=== PATIENT | male | born 1960 | race Caucasian/White ===

== ENCOUNTER 2019-07-08 11:48 | Emergency (ER) | payer OTHER, MEDICAID, SELFPAY ==
[2019-07-08] VITALS (7 sets, daily range): BP systolic 173–208; BP diastolic 97–111; PULSE 72–84; RESP 18–23; TEMP 36.5; O2SAT 95–100; BMI 19.2
--- NOTE | 2019-07-08 11:57 | DI.RAD.S_ITS ---
PROCEDURE: XR CHEST 1V INDICATIONS: dyspnea, epigastric pain TECHNIQUE: One view of the chest was acquired. COMPARISON: None. FINDINGS: Surgical changes and devices: None. Lungs and pleura: Interstitial prominence is seen, which is most prominent within the right midlung. No pneumothorax or pleural effusions are seen. Mediastinum: The cardiac contours are within normal limits. The aorta demonstrates calcification and tortuosity. Bones and chest wall: No suspicious bony lesions. Age-appropriate bony degenerative changes are seen. Overlying soft tissues appear unremarkable. IMPRESSION: Right greater than left interstitial prominence. Differential diagnosis includes pulmonary edema and viral/atypical infiltrate. Please consider COVID-19 infection, in the appropriate clinical context. Dictated by: Guilherme Miles M.D. on 07/08/2019 at 11:59 Approved by: Guilherme Miles M.D. on 07/08/2019 at 12:00
[2019-07-08] MEDS: LORazepam 2 MG/ML INJ 1 MG IM (12:11)
[2019-07-08] MEDS: ONDANSETRON 4 MG/2 ML INJ IV ×2 (12:20→14:20)
[2019-07-08] MEDS: SODIUM CHLORIDE 0.9% 1,000 ML 1000 ML IV (12:21)
[2019-07-08] MEDS: PANTOPRAZOLE 40 MG VIAL IV (12:21)
[2019-07-08 12:25] LABS: Add Manual Diff / Slide Review NO; Basophils Absolute Auto 0 /uL (0-100); Basophils Percent Auto 0.3 % (0-2); Eosinophils Absolute Auto 0 /uL (0-450); Eosinophils Percent Auto 0.1 % (2-4); Hematocrit 44.1 % (41-53); Hemoglobin 15.3 g/dL (13.5-17.5); Lymphocytes Absolute Auto 900 /uL (1100-4500); Lymphocytes Percent Auto 7.9 % (25-40); Mean Corpuscular HGB Conc 34.6 % (30-36); Mean Corpuscular Hemoglobin 30.7 PG (26-34); Mean Corpuscular Volume 88.5 fL (80-100); Monocytes Absolute Auto 200 /uL (0-900); Monocytes Percent Auto 2.3 % (3-14); Neutrophils Absolute Auto 9700 /uL (1500-7000); Neutrophils Percent Auto 89.4 % (50-75); Platelet Count 217 X10^3/uL (150-400); Red Blood Cell Count 4.98 X10^6/uL (4.5-5.9); Red Cell Distribution Width 14.1 % (11.6-14.8); White Blood Cell Count 10.8 X10^3/uL (4.5-11.0)
[2019-07-08 12:37] LABS: Alanine Aminotransferase 22 IU/L (<50); Albumin 4.4 g/dL (3.5-5.0); Albumin Globulin Ratio 1.3 (1.0-2.8); Alkaline Phosphatase 94 U/L (38-126); Aspartate Aminotransferase 28 IU/L (17-59); BUN Creatinine Ratio 24.1 (6-22); Bilirubin Total 0.7 mg/dL (0.2-1.3); Blood Urea Nitrogen 20 mg/dL (9-20); Calcium 9.4 mg/dL (8.4-10.2); Carbon Dioxide 24 mmol/L (22-32); Chloride 101 mmol/L (98-107); Creatine Kinase 72 U/L (55-170); Estimated Glomerular Filt Rate > 60.0 mL/min (>60); Globulin 3.5 g/dL (1.7-4.1); Glucose 142 mg/dL (70-100); HEMOLYSIS < 15 (0-50); Lactate (Lactic Acid) 2.1 mmol/L (0.7-2.1); Lipase 50 U/L (23-300); Potassium 3.4 mmol/L (3.4-5.1); Sodium 136 mmol/L (137-145); Total Protein 7.9 g/dL (6.3-8.2)
[2019-07-08 12:48] LABS: Troponin I < 0.012 ng/mL (0.01-0.034)
--- NOTE | 2019-07-08 13:39 | ED_ITS ---
HPI - General Adult <Richmond Macedo [facility] - Last Filed: 07/08/19 18:12> General Chief complaint: Hypertension Stated complaint: Hypertensive and nausea Source: patient Mode of arrival: EMS Limitations: no limitations History of Present Illness HPI narrative: This is a 59-year-old male, smoker, with significant medical history with hypertension, who presents to ED with [facility] from [facility] with chief complain of nausea and hypertension. Patient is actively dry heaving when he arrived with chills and dyspnea. Patient denies chest pain, dizziness. Patient reports onset of nausea and vomiting 2 hours ago with mid abdominal discomfort. Reports had about 10 episodes of emesis without blood but with content of stomach acid. Last meal this morning which he had eggs. Patient reports he had similar symptoms in the past when he ruptured spleen from water skiing injury 20 years ago and from withdrawal symptoms. Patient states he takes methadone 55 mg once a day and last dose was yesterday morning since he was not able to tolerate with nausea and vomiting for today's dose. Patient denies drinking alcohol but states had smoked heroin 2 days ago the last time. Patient states he takes clonidine as needed for hypertensive episodes. Related Data Previous Rx's Medication Instructions Recorded ondansetron 4 mg PO Q6-8H PRN #10 tab 07/08/19 pantoprazole 40 mg PO DAILY #14 tab 07/08/19 Allergies Allergy/AdvReac Type Severity Reaction Status Date / Time meperidine [From Demerol] Allergy Verified 07/08/19 12:05 Review of Systems <Richmond Macedo [facility] - Last Filed: 07/08/19 18:12> Review of Systems Narrative: General: Denies fever, chills, fatigue, malaise, sweats. HEENT: Denies sinus pain, ear pain, sore throat, difficulty swallowing, dizzin ess. Respiratory: Denies (+) dyspnea, cough, wheezing, hemoptysis, sputum. Cardiovascular: Denies chest pain, palpitations, orthopnea, edema. Gastrointestinal: See HPI : Denies dysuria, frequency, incontinence, hematuria, urinary retention. Musculoskeletal: Denies weakness, joint pain or bony pain. Skin: Denies rash, skin lesions, or other. Neurologic: Denies weakness, headache, numbness, change in speech, confusion, seizures, incoordination. Psychiatric: No concerning psychosocial issues. 12-point review of systems is negative except for those stated above. Patient History <Richmond BetheaEFRAIN Tamayo - Last Filed: 07/08/19 18:12> Medical History Heroin use (Acute) Hypertension (Acute) Social History Smoking Status: Current every day smoker Smoking Status: Current every day smoker tobacco type: cigarettes alcohol intake frequency: 0-2 drinks per day Substance Use Type: heroin Exam <Richmond BetheaEFRAIN Tamayo - Last Filed: 07/08/19 18:12> Narrative Exam Narrative: GEN: Alert, oriented x 3, ill appearing, thin appearing and in acute distress. Head: Normal cephalic, atraumatic. No scalp or temporal tenderness, palpable mass or rash. EYES: Pupils are equal, round, and reactive to light and accommodation. Extraocular muscles are intact bilaterally. There is no subconjunctival h emorrhage, exudate and sclera non-icteric. ENT: Hearing grossly intact. Nose without bleeding, purulent discharge or deviation. Facial sinuses nontender to palpate. Mucous membrane dry, no mucosal lesion. Throat without erythema, tonsillar hypertrophy or exudate. Uvula in midline, airway patent. Neck: Trachea in midline. No JVD, non-tender without lymphadenopathy. No masses or thyroid megaly. Supple, non-tender and no meningeal signs. CARDIAC: Normal regular rate and rhythm without murmurs, gallops, or rubs. No chest wall tenderness. No peripheral edema, cyanosis or pallor. Capillary refill is less than 2 seconds. RESPIRATORY: Lungs are clear to auscultate bilaterally. No cough, wheezes, rales, or rhonchi. No stridor, respiratory distress, increase work of breathing, or accessary muscle used. ABD: Abdomen soft and non-distended. Tender to palpate and mid abdomen. No guarding or rebound tenderness to palpate. Bowel sounds are normal in all 4 quadrants. There is no palpable masses or organomegaly. EXT: Full painless ROM of all extremities with no loss of sensation, strength, effusion or edema. SKIN: Diaphoretic and pale color for patient. No erythema, lesions or rash over visible areas. BACK: Nontender without deformity or crepitance. No flank tenderness. NEUROLOGICAL: Alert and oriented to place, time and person. Sensation and motor function intact bilaterally. No facial droops, dysphasia. Initial Vital Signs Initial Vital Signs: Vital Signs Temperature 97.7 F 07/08/19 11:55 Pulse Rate 72 07/08/19 11:55 Respiratory Rate 20 07/08/19 11:55 Blood Pressure 208/109 H 07/08/19 11:55 Pulse Oximetry 100 07/08/19 11:55 Psych Speech and Movement: restless Attitude: cooperative Thought Content: normal <Juliette Alarcon DO - Last Filed: 07/09/19 07:57> Initial Vital Signs Initial Vital Signs: Vital Signs Temperature 97.7 F 07/08/19 11:55 Pulse Rate 72 07/08/19 11:55 Respiratory Rate 20 07/08/19 11:55 Blood Pressure 208/109 H 07/08/19 11:55 Pulse Oximetry 100 07/08/19 11:55 Scores <EFRAIN Reyes - Last Filed: 07/08/19 18:12> GCS Melvina coma scale eye opening: Spontaneous Melvina coma scale verbal response: Orientated Melvina coma scale motor response: Obey commands Brillion coma scale total score: 15 Course <EFRAIN Reyes - Last Filed: 07/08/19 18:12> Orders Ordered: Discontinued Medications Sodium Chloride (Normal Saline 0.9%) 1,000 mls @ 1,000 mls/hr IV CONT JODI Last Infusion: 07/08/19 13:37 Dose: 0 mls/hr Documented by: Admin: 07/08/19 12:21 Dose: 1,000 mls/hr Documented by: REJI Lidocaine HCl (Viscous Lidocaine 2%) 10 ml PO NOW ONE Stop: 07/08/19 14:59 Last Admin: 07/08/19 15:24 Dose: 10 ml Documented by: IWONA Lorazepam (Ativan) 1 mg IM NOW ONE Stop: 07/08/19 12:05 Last Admin: 07/08/19 12:11 Dose: 1 mg Documented by: REJI Morphine Sulfate (Morphine) 4 mg IV NOW ONE Stop: 07/08/19 13:56 Last Admin: 07/08/19 14:20 Dose: 4 mg Documented by: CASSIE Ondansetron HCl (Zofran) 4 mg IV NOW ONE Stop: 07/08/19 11:56 Last Admin: 07/08/19 12:20 Dose: 4 mg Documented by: REJI Ondansetron HCl (Zofran) 4 mg IV NOW ONE Stop: 07/08/19 14:04 Last Admin: 07/08/19 14:20 Dose: 4 mg Documented by: CASSIE Pantoprazole Sodium (Protonix) 40 mg IV NOW ONE Stop: 07/08/19 11:56 Last Admin: 07/08/19 12:21 Dose: 40 mg Documented by: REJI Sucralfate (Carafate) 1 gm PO ADRYAN JODI Sucralfate (Carafate) 1 gm PO NOW ONE Stop: 07/08/19 15:21 Last Admin: 07/08/19 15:23 Dose: 1 gm Documented by: IWONA Vital Signs Vital signs: Vital Signs - 8 hr 07/08/19 11:55 07/08/19 12:00 07/08/19 13:00 Temperature 97.7 F Pulse Rate 72 82 78 Respiratory Rate 20 18 22 Blood Pressure 208/109 H Blood Pressure [Left Arm] 205/111 H 173/97 H Pulse Oximetry 100 98 97 07/08/19 14:00 07/08/19 14:30 07/08/19 15:08 Temperature Pulse Rate 84 79 83 Respiratory Rate 23 22 21 Blood Pressure Blood Pressure [Left Arm] 182/102 H 175/99 H 178/105 H Pulse Oximetry 95 95 95 07/08/19 16:00 Temperature Pulse Rate 79 Respiratory Rate 21 Blood Pressure Blood Pressure [Left Arm] 183/97 H Pulse Oximetry 98 <Juliette Alarcon DO - Last Filed: 07/09/19 07:57> Orders Ordered: Discontinued Medications Sodium Chloride (Normal Saline 0.9%) 1,000 mls @ 1,000 mls/hr IV CONT JODI Last Infusion: 07/08/19 13:37 Dose: 0 mls/hr Documented by: Admin: 07/08/19 12:21 Dose: 1,000 mls/hr Documented by: REJI Lidocaine HCl (Viscous Lidocaine 2%) 10 ml PO NOW ONE Stop: 07/08/19 14:59 Last Admin: 07/08/19 15:24 Dose: 10 ml Documented by: IWONA Lorazepam (Ativan) 1 mg IM NOW ONE Stop: 07/08/19 12:05 Last Admin: 07/08/19 12:11 Dose: 1 mg Documented by: REJI Morphine Sulfate (Morphine) 4 mg IV NOW ONE Stop: 07/08/19 13:56 Last Admin: 07/08/19 14:20 Dose: 4 mg Documented by: CASSIE Ondansetron HCl (Zofran) 4 mg IV NOW ONE Stop: 07/08/19 11:56 Last Admin: 07/08/19 12:20 Dose: 4 mg Documented by: REJI Ondansetron HCl (Zofran) 4 mg IV NOW ONE Stop: 07/08/19 14:04 Last Admin: 07/08/19 14:20 Dose: 4 mg Documented by: CASSIE Pantoprazole Sodium (Protonix) 40 mg IV NOW ONE Stop: 07/08/19 11:56 Last Admin: 07/08/19 12:21 Dose: 40 mg Documented by: REJI Sucralfate (Carafate) 1 gm PO [facility] Sucralfate (Carafate) 1 gm PO NOW ONE Stop: 07/08/19 15:21 Last Admin: 07/08/19 15:23 Dose: 1 gm Documented by: IWONA Vital Signs Vital signs: Vital Signs - 8 hr 07/08/19 11:55 07/08/19 12:00 07/08/19 13:00 Temperature 97.7 F Pulse Rate 72 82 78 Respiratory Rate 20 18 22 Blood Pressure 208/109 H Blood Pressure [Left Arm] 205/111 H 173/97 H Pulse Oximetry 100 98 97 07/08/19 14:00 07/08/19 14:30 07/08/19 15:08 Temperature Pulse Rate 84 79 83 Respiratory Rate 23 22 21 Blood Pressure Blood Pressure [Left Arm] 182/102 H 175/99 H 178/105 H Pulse Oximetry 95 95 95 07/08/19 16:00 Temperature Pulse Rate 79 Respiratory Rate 21 Blood Pressure Blood Pressure [Left Arm] 183/97 H Pulse Oximetry 98 Medical Decision Making <EFRAIN Reyes - Last Filed: 07/08/19 18:12> Differential Diagnosis Differential Diagnosis: Cholecystitis, gastritis, narcotic withdrawal, bowel obstruction, pancreati Medical Records Medical records reviewed: Yes I reviewed the patient's medical records. Lab Data Lab results reviewed: Yes I reviewed the patient's lab results. Result diagrams: 07/08/19 12:13 07/08/19 12:13 Labs: Lab Results 07/08/19 07/08/19 07/08/19 Range/Units 12:13 12:13 12:13 WBC 10.8 (4.5-11.0) X10^3/uL RBC 4.98 (4.5-5.9) X10^6/uL Hgb 15.3 (13.5-17.5) g/dL Hct 44.1 (41-53) % MCV 88.5 (80-100) fL MCH 30.7 (26-34) PG MCHC 34.6 (30-36) % RDW 14.1 (11.6-14.8) % Plt Count 217 (150-400) X10^3/uL Neut % (Auto) 89.4 H (50-75) % Lymph % (Auto) 7.9 L (25-40) % [place] % (Auto) 2.3 L (3-14) % Eos % (Auto) 0.1 L (2-4) % Baso % (Auto) 0.3 (0-2) % Neut # (Auto) 9700 H (9394-4877) /uL Lymph # (Auto) 900 L (8582-5474) /uL [place] # (Auto) 200 (0-900) /uL Eos # (Auto) 0 (0-450) /uL Baso # (Auto) 0 (0-100) /uL Sodium 136 L (137-145) mmol/L Potassium 3.4 (3.4-5.1) mmol/L Chloride 101 (98-107) mmol/L Carbon Dioxide 24 (22-32) mmol/L BUN 20 (9-20) mg/dL Creatinine 0.83 (0.66-1.25) mg/dL Estimated GFR > 60.0 (>60) mL/min BUN/Creatinine Ratio 24.1 H (6-22) Glucose 142 H (70-100) mg/dL Lactate 2.1 (0.7-2.1) mmol/L Calcium 9.4 (8.4-10.2) mg/dL Total Bilirubin 0.7 (0.2-1.3) mg/dL AST 28 (17-59) IU/L ALT 22 (<50) IU/L Alkaline Phosphatase 94 (38-126) U/L Total Creatine Kinase 72 (55-170) U/L CK-MB (CK-2) TNP CK-MB (CK-2) Rel Index TNP Troponin I < 0.012 (0.01-0.034) ng/mL Total Protein 7.9 (6.3-8.2) g/dL Albumin 4.4 (3.5-5.0) g/dL Globulin 3.5 (1.7-4.1) g/dL Albumin/Globulin Ratio 1.3 (1.0-2.8) Lipase 50 (23-300) U/L U Opiates 300ng/mL cut (Negative) Ur Oxycodone Screen (Negative) Urine Methadone Screen (Negative) Ur Barbiturates Screen (Negative) U Tricyclic Antidepress (Negative) Ur Phencyclidine Scrn (Negative) Ur Amphetamines Screen (Negative) U Methamphetamines Scrn (Negative) Ur MDMA Scrn (Ecstasy) (Negative) U Benzodiazepines Scrn (Negative) Urine Cocaine Screen (Negative) U Marijuana (THC) Screen (Negative) COVID-19 PCR (Not Detect) 07/08/19 07/08/19 Range/Units 12:55 13:52 WBC (4.5-11.0) X10^3/uL RBC (4.5-5.9) X10^6/uL Hgb (13.5-17.5) g/dL Hct (41-53) % MCV (80-100) fL MCH (26-34) PG MCHC (30-36) % RDW (11.6-14.8) % Plt Count (150-400) X10^3/uL Neut % (Auto) (50-75) % Lymph % (Auto) (25-40) % [place] % (Auto) (3-14) % Eos % (Auto) (2-4) % Baso % (Auto) (0-2) % Neut # (Auto) (4927-5442) /uL Lymph # (Auto) (5895-4873) /uL [place] # (Auto) (0-900) /uL Eos # (Auto) (0-450) /uL Baso # (Auto) (0-100) /uL Sodium (137-145) mmol/L Potassium (3.4-5.1) mmol/L Chloride (98-107) mmol/L Carbon Dioxide (22-32) mmol/L BUN (9-20) mg/dL Creatinine (0.66-1.25) mg/dL Estimated GFR (>60) mL/min BUN/Creatinine Ratio (6-22) Glucose (70-100) mg/dL Lactate (0.7-2.1) mmol/L Calcium (8.4-10.2) mg/dL Total Bilirubin (0.2-1.3) mg/dL AST (17-59) IU/L ALT (<50) IU/L Alkaline Phosphatase (38-126) U/L Total Creatine Kinase (55-170) U/L CK-MB (CK-2) CK-MB (CK-2) Rel Index Troponin I (0.01-0.034) ng/mL Total Protein (6.3-8.2) g/dL Albumin (3.5-5.0) g/dL Globulin (1.7-4.1) g/dL Albumin/Globulin Ratio (1.0-2.8) Lipase (23-300) U/L U Opiates 300ng/mL cut Positive H (Negative) Ur Oxycodone Screen Negative (Negative) Urine Methadone Screen Negative (Negative) Ur Barbiturates Screen Negative (Negative) U Tricyclic Antidepress Negative (Negative) Ur Phencyclidine Scrn Negative (Negative) Ur Amphetamines Screen Negative (Negative) U Methamphetamines Scrn Negative (Negative) Ur MDMA Scrn (Ecstasy) Negative (Negative) U Benzodiazepines Scrn Negative (Negative) Urine Cocaine Screen Negative (Negative) U Marijuana (THC) Screen Positive H (Negative) COVID-19 PCR Not detected (Not Detect) Urine Dip Bedside Urine Glucose Negative Bedside Urine Bilirubin - Negative Bedside Urine Ketone - Negative Urine Specific [place] 1.015 Bedside Urine Occult Blood +/- Bedside Urine pH 8.5 Bedside Urine Protein +/- 15 Bedside Urine Urobilinogen +/- 1mg Bedside Urine Nitrite - Negative Bedside Urine Leukocytes - Negative Esterase Point of care testing: Urine Dip Bedside Urine Glucose Negative Bedside Urine Bilirubin - Negative Bedside Urine Ketone - Negative Urine Specific [place] 1.015 Bedside Urine Occult Blood +/- Bedside Urine pH 8.5 Bedside Urine Protein +/- 15 Bedside Urine Urobilinogen +/- 1mg Bedside Urine Nitrite - Negative Bedside Urine Leukocytes - Negative Esterase Imaging Data Chest x-ray: Radiologist's Impression: [address] [address] XRay Report Signed Patient: Yolis Gil#: [id number] : [id number]:[id number] Age/Sex: 59 / MDate of Service: 07/08/19 Loc: ED Accession Number: [id number] Procedure: XR chest 1V Ordering Provider: Richmond Macedo PROCEDURE: XR CHEST 1V INDICATIONS: dyspnea, epigastric pain TECHNIQUE: One view of the chest was acquired. COMPARISON: None. FINDINGS: Surgical changes and devices: None. Lungs and pleura: Interstitial prominence is seen, which is most prominent within the right midlung. No pneumothorax or pleural effusions are seen. Mediastinum: The cardiac contours are within normal limits. The aorta demonstrates calcification and tortuosity. Bones and chest wall: No suspicious bony lesions. Age-appropriate bony degener ative changes are seen. Overlying soft tissues appear unremarkable. IMPRESSION: Right greater than left interstitial prominence. Differential diagnosis includes pulmonary edema and viral/atypical infiltrate. Please consider COVID-19 infection, in the appropriate clinical context. Dictated by: Guilherme Miles M.D. on 07/08/2019 at 11:59 Approved by: Guilherme Miles M.D. on 07/08/2019 at 12:00 CT scan - abdomen/pelvis: Radiologist's Impression: [address] [address] [address] Scan Report Signed Patient: Yolis Gil#: [id number] : [id number]:[id number] Age/Sex: 59 / MDate of Service: 07/08/19 Loc: ED Accession Number: [id number] Procedure: CT abdomen pelvis w con Ordering Provider: Richmond Macedo PROCEDURE: CT ABDOMEN PELVIS W CON INDICATIONS: mid abd pain, n/v, chills TECHNIQUE: After the administration of intravenous contrast, 5 mm thick sections acquired from the diaphragm to the symphysis. 5 mm coronal and sagittal reformats were acquired. For radiation dose reduction, the following was used: automated exposure control, adjustment of mA and/or kV according to patient size. COMPARISON: [facility], CT, CT KUB, 06/22/2018, 5:22. FINDINGS: Image quality: Excellent. ABDOMEN: Lung bases: Lung bases are clear. Heart size is normal. Solid organs: Liver is normal in size and enhancement. Gallbladder is distended and shows no gross abnormality. There is mild intrahepatic biliary ductal dilatation and mild prominence of pancreatic duct, unchanged in size and appearance from previous KUB study. Common bile duct measures up to 6.5 mm in diameter which is in the upper limits of normal. Pancreas enhances normally. Spleen is normal in size and enhancement. No adrenal nodules. Kidneys demonstrate normal size and enhancement, without hydronephrosis. Peritoneum and bowel: Gastric lumen is distended with fluid and showed diffuse gastric wall thickening concerning for gastritis. No evidence of bowel obstruction. No small bowel or colonic wall thickening. Small amount of free fluid in lower abdomen and pelvis is seen. No gross peritoneal free air. Sigmoid diverticulosis is seen, no definite CT evidence of acute diverticulitis. Post surgical changes are noted in epigastric region. Nodes and vessels: No retroperitoneal or mesenteric adenopathy by size criteria. Aorta and inferior vena cava are normal in size. Miscellaneous: No ventral hernias. PELVIS: Genitourinary: There is mild diffuse bladder wall thickening, no discrete bladder wall mass. Miscellaneous: No inguinal hernias or adenopathy. Bones: No suspicious bony lesions. No vertebral body compression fractures. IMPRESSION: 1. Distended stomach lumen with suggestion of gastric wall thickening concerning for infectious or inflammatory gastritis. Post surgical changes in epigastric region unchanged from prior study. 2. Stable chronic appearing mild biliary ductal dilatation and mild dilatation of pancreatic duct. 3. Small amount of free fluid in the lower abdomen and pelvis. No gross free air. No evidence of bowel structure and. Sigmoid diverticulosis with no CT evidence of acute diverticulitis. Dictated by: Glenn Camarillo M.D. on 07/08/2019 at 14:36 Approved by: Glenn Camarillo M.D. on 07/08/2019 at 14:46 ECG Data Attestation: I personally reviewed and interpreted this ECG as follows: Prior ECG tracings: not available for review Interpretation: Sinus rhythm rate at 74. Normal [place]. NV interval 148, QRS duration 92, QT/QTC 432/479. No ST elevation or depression MDM Narrative Medical decision making narrative: This is a 59-year-old male who was brought in to ED from [facility] by EMS with hypertensive episodes and nausea and vomiting. Upon arrival, patient had active nausea and appears to be in discomfort. Was difficult to obtaining history and conducting physical exam. IV start was difficult. Patient was given IM injection of Ativan for possible withdrawal symptoms. Patient was able to rest shortly without significant discomfort with decreased nausea and vomiting. After IV had started, patient received Zofran, pantoprazole, normal saline IV fluid. However patient reports recurring mid abdominal discomfort and nausea. Patient was re- medicated with Zofran, morphine for the symptoms. EKG was sinus rhythm. Stable H&H and no leukocytosis. Chemistry test was unremarkable. Normal lipase and cardiac enzymes. Lactic acid was normal. UDS shows positive for opiates and marijuana but negative for methadone which does not reflect patient is reports on taking methadone daily. The patient states smoking heroin 2 days ago. Reassessed on Abdomen, Mid abdomen was tender to gentle palpation. CT test of abdomen pelvis was added and it indicates distended stomach lumen with suggestion of gastric were thickening concerning for infectious or inflammatory gastritis. There is stable chronic appearing mild biliary duct dilatation and mild dilation of pancreatic duct which is unchanged from previous KUB. There is a small amount of free fluid in lower abdomen and pelvis but no gross free air indicating perforation. There is sigmoid diverticulosis without evidence of acute diverticulitis. Patient advised to follow-up with primary care physician for further workup for H pylori infection and EGD if pain recurs. Patient discharged to home with pantoprazole 40 mg daily use. Patient also advised to use clonidine regularly to avoid rebound hypertensive episodes. Patient had elevated blood pressure in ED. return precautions were discussed with patient and patient verbalized understanding and in agreement with the treatment plan. <Juliette Alarcon, DO - Last Filed: 07/09/19 07:57> Lab Data Lab results reviewed: Yes I reviewed the patient's lab results. Labs: Lab Results 07/08/19 07/08/19 07/08/19 Range/Units 12:13 12:13 12:13 WBC 10.8 (4.5-11.0) X10^3/uL RBC 4.98 (4.5-5.9) X10^6/uL Hgb 15.3 (13.5-17.5) g/dL Hct 44.1 (41-53) % MCV 88.5 (80-100) fL MCH 30.7 (26-34) PG MCHC 34.6 (30-36) % RDW 14.1 (11.6-14.8) % Plt Count 217 (150-400) X10^3/uL Neut % (Auto) 89.4 H (50-75) % Lymph % (Auto) 7.9 L (25-40) % [place] % (Auto) 2.3 L (3-14) % Eos % (Auto) 0.1 L (2-4) % Baso % (Auto) 0.3 (0-2) % Neut # (Auto) 9700 H (2001-4938) /uL Lymph # (Auto) 900 L (0296-0543) /uL [place] # (Auto) 200 (0-900) /uL Eos # (Auto) 0 (0-450) /uL Baso # (Auto) 0 (0-100) /uL Sodium 136 L (137-145) mmol/L Potassium 3.4 (3.4-5.1) mmol/L Chloride 101 (98-107) mmol/L Carbon Dioxide 24 (22-32) mmol/L BUN 20 (9-20) mg/dL Creatinine 0.83 (0.66-1.25) mg/dL Estimated GFR > 60.0 (>60) mL/min BUN/Creatinine Ratio 24.1 H (6-22) Glucose 142 H (70-100) mg/dL Lactate 2.1 (0.7-2.1) mmol/L Calcium 9.4 (8.4-10.2) mg/dL Total Bilirubin 0.7 (0.2-1.3) mg/dL AST 28 (17-59) IU/L ALT 22 (<50) IU/L Alkaline Phosphatase 94 (38-126) U/L Total Creatine Kinase 72 (55-170) U/L CK-MB (CK-2) TNP CK-MB (CK-2) Rel Index TNP Troponin I < 0.012 (0.01-0.034) ng/mL Total Protein 7.9 (6.3-8.2) g/dL Albumin 4.4 (3.5-5.0) g/dL Globulin 3.5 (1.7-4.1) g/dL Albumin/Globulin Ratio 1.3 (1.0-2.8) Lipase 50 (23-300) U/L U Opiates 300ng/mL cut (Negative) Ur Oxycodone Screen (Negative) Urine Methadone Screen (Negative) Ur Barbiturates Screen (Negative) U Tricyclic Antidepress (Negative) Ur Phencyclidine Scrn (Negative) Ur Amphetamines Screen (Negative) U Methamphetamines Scrn (Negative) Ur MDMA Scrn (Ecstasy) (Negative) U Benzodiazepines Scrn (Negative) Urine Cocaine Screen (Negative) U Marijuana (THC) Screen (Negative) COVID-19 PCR (Not Detect) 07/08/19 07/08/19 Range/Units 12:55 13:52 WBC (4.5-11.0) X10^3/uL RBC (4.5-5.9) X10^6/uL Hgb (13.5-17.5) g/dL Hct (41-53) % MCV (80-100) fL MCH (26-34) PG MCHC (30-36) % RDW (11.6-14.8) % Plt Count (150-400) X10^3/uL Neut % (Auto) (50-75) % Lymph % (Auto) (25-40) % [place] % (Auto) (3-14) % Eos % (Auto) (2-4) % Baso % (Auto) (0-2) % Neut # (Auto) (7283-9380) /uL Lymph # (Auto) (4621-2258) /uL [place] # (Auto) (0-900) /uL Eos # (Auto) (0-450) /uL Baso # (Auto) (0-100) /uL Sodium (137-145) mmol/L Potassium (3.4-5.1) mmol/L Chloride (98-107) mmol/L Carbon Dioxide (22-32) mmol/L BUN (9-20) mg/dL Creatinine (0.66-1.25) mg/dL Estimated GFR (>60) mL/min BUN/Creatinine Ratio (6-22) Glucose (70-100) mg/dL Lactate (0.7-2.1) mmol/L Calcium (8.4-10.2) mg/dL Total Bilirubin (0.2-1.3) mg/dL AST (17-59) IU/L ALT (<50) IU/L Alkaline Phosphatase (38-126) U/L Total Creatine Kinase (55-170) U/L CK-MB (CK-2) CK-MB (CK-2) Rel Index Troponin I (0.01-0.034) ng/mL Total Protein (6.3-8.2) g/dL Albumin (3.5-5.0) g/dL Globulin (1.7-4.1) g/dL Albumin/Globulin Ratio (1.0-2.8) Lipase (23-300) U/L U Opiates 300ng/mL cut Positive H (Negative) Ur Oxycodone Screen Negative (Negative) Urine Methadone Screen Negative (Negative) Ur Barbiturates Screen Negative (Negative) U Tricyclic Antidepress Negative (Negative) Ur Phencyclidine Scrn Negative (Negative) Ur Amphetamines Screen Negative (Negative) U Methamphetamines Scrn Negative (Negative) Ur MDMA Scrn (Ecstasy) Negative (Negative) U Benzodiazepines Scrn Negative (Negative) Urine Cocaine Screen Negative (Negative) U Marijuana (THC) Screen Positive H (Negative) COVID-19 PCR Not detected (Not Detect) Urine Dip Bedside Urine Glucose Negative Bedside Urine Bilirubin - Negative Bedside Urine Ketone - Negative Urine Specific [place] 1.015 Bedside Urine Occult Blood +/- Bedside Urine pH 8.5 Bedside Urine Protein +/- 15 Bedside Urine Urobilinogen +/- 1mg Bedside Urine Nitrite - Negative Bedside Urine Leukocytes - Negative Esterase Point of care testing: Urine Dip Bedside Urine Glucose Negative Bedside Urine Bilirubin - Negative Bedside Urine Ketone - Negative Urine Specific [place] 1.015 Bedside Urine Occult Blood +/- Bedside Urine pH 8.5 Bedside Urine Protein +/- 15 Bedside Urine Urobilinogen +/- 1mg Bedside Urine Nitrite - Negative Bedside Urine Leukocytes - Negative Esterase MDM Narrative Medical decision making narrative: Case discussed with me, reviewed HPI, exam, labs and imaging. Agree with assessment and plan at this time. Discharge Plan Departure Patient Disposition: Home Clinical Impression: Drug addiction Gastritis Qualifiers: Gastritis type: unspecified gastritis Chronicity: unspecified Gastritis bleeding: presence of bleeding unspecified Qualified Code(s): K29.70 - Gastriti s, unspecified, without bleeding Nausea & vomiting Qualifiers: Vomiting type: unspecified Vomiting Intractability: non-intractable Qualified Code(s): R11.2 - Nausea with vomiting, unspecified Hypertension Qualifiers: Hypertension type: unspecified Qualified Code(s): I10 - Essential (primary) hypertension Discharge Date/Time: 07/08/19 16:13 Instructions: Substance Use Disorder, DI for High Blood Pressure, DI for Gastritis, Nausea and Vomiting-Adult Activity Restrictions/Additional Instructions: You have been diagnosed with [gastritis, nausea and vomiting, hypertension, substance use disorder. Lab tests were unremarkable. CT test shows signs of gastritis with thickened gastric lumen with fluid. No signs of bowel obstruction. Small amount of free fluid in lower abdomen and pelvis without gross peritoneal free air. Sigmoid diverticulosis was seen without definite CT evidence of acute diverticulitis. There is stable chronic appearing mild biliary and pancreatic duct dilation which has not been changed from previous KUB test. You were medicated with Zofran, IV fluid, pantoprazole, sucralfate, lidocaine, morphine for your symptoms management]. What to do: *Take your medications as directed. Please take on dense their own/Zofran as needed for nausea and vomiting. Please start taking pantoprazole once a day for next couple of weeks. Please hydrate adequately and avoid foods high in acid, fatty food, spicy food, caffeine, alcohol or food that aggravates the symptom. This medication has been transmitted to [facility] in [place]. Please take clonidine regularly to avoid rebound hypertension. Please avoid using illicit drugs. *Follow up with your primary care provider in 2-3 days, call for an appointment. Let them know you were seen in the ED and that we asked you to be seen in follow up. You may need follow-up for H pylori test and EGD for your symptoms. *Return to ED if you have any new, worsening, or concerning symptoms, such as [chest pain, breathing difficulty, unable to tolerate fluids, vomiting blood or having bloody stool/tarry stool, feeling like faint or any acute concerns]. Prescriptions: New pantoprazole 40 mg tablet,delayed release (DR/EC) 40 mg PO DAILY Qty: 14 RF: 0 ondansetron 4 mg tablet,disintegrating 4 mg PO Q6-8H PRN (Reason: nausea and vomiting) Qty: 10 RF: 0 Referrals: Jesse Bear MD [Non-Staff] -
[2019-07-08 13:42] LABS: UR Morphine/Opiate cutoff 300 Positive (Negative); Ur Creatinine Normal (Normal); Ur Specific Gravity Normal (Normal); Urine Amphetamines Negative (Negative); Urine Barbiturates Negative (Negative); Urine Benzodiazepines Negative (Negative); Urine Cocaine Negative (Negative); Urine MDMA Negative (Negative); Urine Methadone Negative (Negative); Urine Methamphetamines Negative (Negative); Urine Oxycodone Negative (Negative); Urine Phencyclidine Negative (Negative); Urine Tetrahydrocannabinol Positive (Negative); Urine Tricyclic Antidepressant Negative (Negative); Urine pH Normal (Normal)
--- NOTE | 2019-07-08 13:55 | DI.CT.S_ITS ---
PROCEDURE: CT ABDOMEN PELVIS W CON INDICATIONS: mid abd pain, n/v, chills TECHNIQUE: After the administration of intravenous contrast, 5 mm thick sections acquired from the diaphragm to the symphysis. 5 mm coronal and sagittal reformats were acquired. For radiation dose reduction, the following was used: automated exposure control, adjustment of mA and/or kV according to patient size. COMPARISON: [facility], CT, CT KUB, 06/22/2018, 5:22. FINDINGS: Image quality: Excellent. ABDOMEN: Lung bases: Lung bases are clear. Heart size is normal. Solid organs: Liver is normal in size and enhancement. Gallbladder is distended and shows no gross abnormality. There is mild intrahepatic biliary ductal dilatation and mild prominence of pancreatic duct, unchanged in size and appearance from previous KUB study. Common bile duct measures up to 6.5 mm in diameter which is in the upper limits of normal. Pancreas enhances normally. Spleen is normal in size and enhancement. No adrenal nodules. Kidneys demonstrate normal size and enhancement, without hydronephrosis. Peritoneum and bowel: Gastric lumen is distended with fluid and showed diffuse gastric wall thickening concerning for gastritis. No evidence of bowel obstruction. No small bowel or colonic wall thickening. Small amount of free fluid in lower abdomen and pelvis is seen. No gross peritoneal free air. Sigmoid diverticulosis is seen, no definite CT evidence of acute diverticulitis. Post surgical changes are noted in epigastric region. Nodes and vessels: No retroperitoneal or mesenteric adenopathy by size criteria. Aorta and inferior vena cava are normal in size. Miscellaneous: No ventral hernias. PELVIS: Genitourinary: There is mild diffuse bladder wall thickening, no discrete bladder wall mass. Miscellaneous: No inguinal hernias or adenopathy. Bones: No suspicious bony lesions. No vertebral body compression fractures. IMPRESSION: 1. Distended stomach lumen with suggestion of gastric wall thickening concerning for infectious or inflammatory gastritis. Post surgical changes in epigastric region unchanged from prior study. 2. Stable chronic appearing mild biliary ductal dilatation and mild dilatation of pancreatic duct. 3. Small amount of free fluid in the lower abdomen and pelvis. No gross free air. No evidence of bowel structure and. Sigmoid diverticulosis with no CT evidence of acute diverticulitis. Dictated by: Glenn Camarillo M.D. on 07/08/2019 at 14:36 Approved by: Glenn Camarillo M.D. on 07/08/2019 at 14:46
[2019-07-08] MEDS: MORPHINE 4 MG/ML INJ IV (14:20)
[2019-07-08] MEDS: SUCRALFATE 1 GM/10 ML ORAL SUSP PO (15:23)
[2019-07-08] MEDS: LIDOCAINE VISCOUS 2% 15 ML SOLUTION 10 ML PO (15:24)
[2019-07-09 02:38] LABS: COVID19 Sendout Not Detected (Not Detect)
== END 2019-07-08 16:13 | disposition home or self-care (01) ==
PROVIDERS: Emergency Provider Nurse Practitioner Family; Referring Provider Nurse Practitioner Family
DX: K29.70 Gastritis, unspecified, without bleeding (principal); R11.2 Nausea with vomiting, unspecified; I10 Essential (primary) hypertension; F19.20 Other psychoactive substance dependence, uncomplicated; R10.13 Epigastric pain; R06.00 Dyspnea, unspecified
CPT/HCPCS: 36415; 71045; 74177; 80053; 80305; 81003; 82550; 83605; 83690; 84484; 85025; 87635; 93005; 96361; 96372; 96374; 96375; 96376; 99284; C9113; J2060; J2270; J2405; Q9967

== ENCOUNTER 2020-04-14 16:23 | Emergency (ER) | payer OTHER, MEDICAID, SELFPAY ==
[2020-04-14] VITALS (7 sets, daily range): BP systolic 111–163; BP diastolic 71–99; PULSE 70–82; RESP 10–14; TEMP 37.4; O2SAT 87–98; BMI 21.8
--- NOTE | 2020-04-14 16:58 | PC.NURSE ---
Patient accidental overdose on methadone. 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 Patient state he felt a little high but feels fine now has been drinking fluids at clinic prior to arrival. Breathing non labored, speaking in full sentences. No complaints at this time.
--- NOTE | 2020-04-14 17:34 | ED_ITS ---
HPI - Overdose <Peewee Lewis DO - Last Filed: 04/15/20 07:17> General Chief Complaint: Toxicology Problem Stated Complaint: States [facility] over dosed him Time Seen by Provider: 04/14/20 16:24 Source: patient Mode of arrival: Ambulatory Limitations: no limitations History of Present Illness HPI Narrative: 60-year-old male daily smoker with history of opioid dependence and abuse presents from local facility due to concern over accidental overdose. Patient routinely takes methadone 150 mg in the morning and went to a local facility to get his weekend dosing and was not thinking and took another 150 mg this afternoon at 3:00 p.m.. He was sent here for observation until we are past the peak concentration of methadone as they close their doors and about 1 hour. The patient is currently asymptomatic. He is not dizzy nor weak or lightheaded. He denies any chest pain or shortness of breath. MD complaint: accidental overdose Onset (ago): minute(s) Related Data Previous Rx's Medication Instructions Recorded ondansetron 4 mg PO Q6-8H PRN #10 tab 07/08/19 pantoprazole 40 mg PO DAILY #14 tab 07/08/19 Allergies Allergy/AdvReac Type Severity Reaction Status Date / Time meperidine [From Demerol] Allergy Verified 04/14/20 16:32 Review of Systems <DO Zi Swanson Last Filed: 04/15/20 07:17> Constitutional Constitutional: Denies chills, Denies fatigue, Denies fever(s), Denies frequent falls, Denies lethargy and Denies weakness Eyes Eyes: Denies change in vision, Denies eye discharge, Denies irritation and Denies loss of vision ENT Ears, Nose, Mouth, and Throat: Denies change in voice, Denies dizziness, Denies neck pain, Denies sore throat and Denies throat swelling Cardiovascular Cardiovascular: Denies chest pain, Denies irregular heart rhythm, Denies lightheadedness, Denies palpitations, Denies dyspnea, Denies dyspnea on exertion and Denies orthopnea Respiratory Respiratory: Denies cough, Denies dyspnea, Denies dyspnea on exertion and Denies wheezing Gastrointestinal Gastrointestinal: Denies abdominal pain, Denies change in bowel habits, Denies diarrhea, Denies nausea and Denies vomiting Musculoskeletal Musculoskeletal: Denies neck pain and Denies numbness Integumentary/Breasts Skin/Breast: Denies pruritus, Denies erythema, Denies rash and Denies wounds Neurologic Neurologic: Denies behavioral changes, Denies confusion, Denies dizziness, Denies frequent falls, Denies loss of vision, Denies numbness and Denies weakness Psychiatric Psychiatric: Denies anxiety, Denies behavioral changes, Denies confusion, Denies depression, Denies homicidal ideation and Denies suicidal ideation Endocrine Endocrine: Denies fatigue, Denies flushing and Denies palpitations Hematologic/Lymphatic Hematologic/Lymphatic: Denies easy bruising Allergic/Immunologic Allergic/Immunologic: Denies urticaria, Denies throat swelling and Denies wheezing Patient History <Peewee Lewis DO - Last Filed: 04/15/20 07:17> Medical History (Updated 04/14/20 @ 20:32 by Letty Reno MD) Heroin use Hypertension Social History Smoking Status: Current every day smoker Smoking Status: Current every day smoker tobacco type: cigarettes alcohol intake frequency: 0-2 drinks per day Substance Use Type: former substance user Exam <Peewee Lewis DO - Last Filed: 04/15/20 07:17> Narrative Exam Narrative: GEN: AOx3 and in mild distress EYES: Pupils are equal, round, and reactive to light and accommodation. Extraoccular muscles are intact bilaterally. There is no subconjunctival hemorrhage or exudate. CHEST: Lungs are clear to auscultation bilaterally and free of wheezes, rales, or rhonchi. Heart rate is regular rhythm, there are no murmurs, clicks, rubs, or gallops. There is no chest wall tenderness. ABD: Abdomen is soft and nontender. There is no guarding or rebound. Bowel sounds are normal in all 4 quadrants. There is no mass or organomegaly. EXT: Full painless ROM of all extremities with no loss of sensation or strength. SKIN: Warm, pink, and dry. No erythema or rash Initial Vital Signs Initial Vital Signs: Vital Signs Temperature 99.3 F 04/14/20 16:32 Pulse Rate 82 04/14/20 16:32 Respiratory Rate 14 04/14/20 16:32 Blood Pressure 163/99 H 04/14/20 16:32 Pulse Oximetry 97 04/14/20 16:32 <Letty Reno MD - Last Filed: 04/14/20 20:55> Initial Vital Signs Initial Vital Signs: Vital Signs Temperature 99.3 F 04/14/20 16:32 Pulse Rate 82 04/14/20 16:32 Respiratory Rate 14 04/14/20 16:32 Blood Pressure 163/99 H 04/14/20 16:32 Pulse Oximetry 97 04/14/20 16:32 Course <Peewee Lewis DO - Last Filed: 04/15/20 07:17> Vital Signs Vital signs: Vital Signs - 8 hr 04/14/20 16:32 04/14/20 18:39 04/14/20 18:40 Temperature 99.3 F Pulse Rate 82 76 74 Respiratory Rate 14 10 L Blood Pressure 163/99 H 138/93 H 138/93 H Pulse Oximetry 97 97 87 L 04/14/20 19:00 04/14/20 19:30 04/14/20 20:00 Temperature Pulse Rate 70 71 72 Respiratory Rate Blood Pressure 143/93 H 144/88 H 111/71 Pulse Oximetry 98 97 96 04/14/20 20:32 Temperature Pulse Rate 79 Respiratory Rate Blood Pressure 140/81 Pulse Oximetry 96 <Letty Reno MD - Last Filed: 04/14/20 20:55> Vital Signs Vital signs: Vital Signs - 8 hr 04/14/20 16:32 04/14/20 18:39 04/14/20 18:40 Temperature 99.3 F Pulse Rate 82 76 74 Respiratory Rate 14 10 L Blood Pressure 163/99 H 138/93 H 138/93 H Pulse Oximetry 97 97 87 L 04/14/20 19:00 04/14/20 19:30 04/14/20 20:00 Temperature Pulse Rate 70 71 72 Respiratory Rate Blood Pressure 143/93 H 144/88 H 111/71 Pulse Oximetry 98 97 96 04/14/20 20:32 Temperature Pulse Rate 79 Respiratory Rate Blood Pressure 140/81 Pulse Oximetry 96 <Letty Reno MD - Last Filed: 04/14/20 20:55> MDM Narrative Medical decision making narrative: 60-year-old gentleman who accidentally took his Friday dose of methadone when he went to [employer] picker his weekend packet this afternoon. He had already had a dose early this morning. Was observed in the emergency department for 5 hours with no adverse events. He is discharged home without any complications Discharge Plan Departure Patient Disposition: Home Clinical Impression: Overdose Qualifiers: Encounter type: initial encounter Injury intent: accidental or unintentional Qualified Code(s): T50.901A - Poisoning by unspecified drugs, medicaments and biological substances, accidental (unintentional), initial encounter Instructions: DI for Prescription Opioid Use Activity Restrictions/Additional Instructions: Thank you for coming in today. Your observed in the emergency department for approximately 5 hours after your 2nd methadone dose today. You are doing well and are free to go home. Please do not take your usual dose of methadone on Friday (you had it already today). Do take your normal dose on Friday and Friday as prescribed Good luck Prescriptions: No Action pantoprazole 40 mg tablet,delayed release (DR/EC) 40 mg PO DAILY Qty: 14 RF: 0 ondansetron 4 mg tablet,disintegrating 4 mg PO Q6-8H PRN (Reason: nausea and vomiting) Qty: 10 RF: 0 ED Sign-out <Peewee Lewis DO - Last Filed: 04/15/20 07:17> [facility]: I was immediately available in the department for consultation. This documentation has been reviewed and I agree with assessment and plan. Supervised by Peewee Lewis DO
== END 2020-04-14 20:38 | disposition home or self-care (01) ==
PROVIDERS: Emergency Provider Emergency Medicine
DX: T40.3X1A Poisoning by methadone, accidental (unintentional), initial encounter (principal); I10 Essential (primary) hypertension
CPT/HCPCS: 99282; 99283

== ENCOUNTER → 2020-05-11 15:57 | Outpatient (CLI) | payer OTHER, MEDICAID, SELFPAY ==
[2020-05-11 16:22] LABS: COVID19 -Nasal RAPID Negative (Negative)
== END ==
PROVIDERS: Visit Provider Nurse Practitioner
DX: Z20.822 Contact with and (suspected) exposure to COVID-19 (principal)
CPT/HCPCS: 87635